=== PATIENT | female | born 1950 | race Asian ===

== ENCOUNTER 2016-11-29 01:16 | Day surgery (SDC) | payer MEDICARE, OTHER ==
[~2016-11-29] VITALS: Ht 165.1 cm; Wt 54.4 kg
[~2016-11-29 01:16] MED LIST: ASCO500C6 PO; ATRV10T PO; CART1TAB5 PO; CHOL200047 PO; CYAN250010 PO; FA/V1CAP3 PO; FELO10TA3 PO; HYDR12.55 PO; LISI40TA PO; MAGN250T29 PO; OMEG1CAP25 PO; SACC250C9 PO; UBID100C16 PO; [UNRECOGNIZED DRUG - CODE] PO
[2016-11-29] MEDS ORDERED: 0.9% Sodium Chloride 1,000 ML IV SCH (06:00)
[2016-11-29] MEDS ORDERED: Sodium Chloride LOK Flush 10 mL Syringe IV PRN (06:00)
[2016-11-29] MEDS ORDERED: fentaNYL-PF 50 mCg/mL 2 mL Inj IVPUSH PRN (06:00)
[2016-11-29 11:59] VITALS: BP 148/95; RESP 16; O2SAT 95
[2016-11-29 12:55] VITALS: BP 135/81; PULSE 63; RESP 12; O2SAT 99
[2016-11-29 13:10] VITALS: BP 126/75; PULSE 57; RESP 12; O2SAT 98
--- NOTE | 2016-11-29 16:31 | ENDO ---
[address] [address] ENDOSCOPY PROCEDURE PATIENT: PANKAJ MCKENZIE : 1950 MR#: [id number] ADMIT: 11/29/2016 JOB ID: [id number] DATE OF SERVICE: 11/29/2016 OPERATION: Esophagogastroduodenoscopy with biopsy. PREOPERATIVE DIAGNOSIS: Gastroesophageal reflux disease. POSTOPERATIVE DIAGNOSIS: Normal upper endoscopy, status post biopsy. ANESTHESIA: Fentanyl 100 mcg, Versed 6 mg IV administered. COMPLICATIONS: None. BLOOD LOSS: Minimal. DESCRIPTION OF PROCEDURE: After risks and benefits were explained to the patient, informed consent was obtained. After anesthesia administered, an upper endoscope was inserted in mouth intubating to the esophagus, stomach, second portion of duodenum. Mucosa carefully examined. After procedure was done, the scope withdrawn, procedure terminated. FINDINGS: Upon inspection of the esophagus, the esophagus was normal without masses, ulcers, or lesions. Z-line located 40 cm from the incisors. Upon entering the stomach, the stomach was also normal without masses, ulcers, or lesions. Retroflexion was normal. Duodenal bulb, first and second portion normal. Biopsies taken at the antrum body and distal esophagus. IMPRESSION: Normal upper endoscopy, status post biopsy. RECOMMENDATIONS: Await pathology results. Follow up in GI clinic as needed.
--- NOTE | 2016-11-30 11:49 | PATH ---
SURGICAL PATHOLOGY Attending Physician:Ruddy Mota MD CASE STATUS: Signed Out PATIENT NAME: PANKAJ MCKENZIE PID: [id number] : 1950 DATE COLLECTED:11/29/2016 20:15 SPECIMEN: 1: Stomach, Antrum, Biopsy 2: Gastric, Biopsy 3: Esophagus, Biopsy CLINICAL HISTORY: GERD 1). ANTRUM BIOPSY 2). GASTRIC BODY BIOPSY 3). DISTAL ESOPHAGUS BIOPSY FINAL DIAGNOSIS: 1.ANTRUM BIOPSY: REACTIVE GASTROPATHY, ANTRAL MUCOSA. Negative for Helicobacter organisms. Negative for intestinal metaplasia. Negative for dysplasia and malignancy. 2.GASTRIC BODY BIOPSY: GASTRIC BODY MUCOSA WITH NO DIAGNOSTIC ALTERATIONS. Negative for Helicobacter organisms. Negative for intestinal metaplasia. Negative for dysplasia and malignancy. 3.DISTAL ESOPHAGUS BIOPSY: SQUAMOCOLUMNAR MUCOSA WITH INTESTINAL METAPLASIA CONSISTENT WITH CAICEDO' S ESOPHAGUS. Negative for dysplasia and malignancy. ICD10 code K29.70 K22.70 GROSS DESCRIPTION: The specimen is received in three formalin filled containers labeled with the patient's name. 1). The specimen is sublabeled "antrum" and consists of 2 portions of tissue which aggregate to 0.3 x 0.3 x 0.3 CM. The specimen is entirely submitted in cassette 1A. 2). The specimen is sublabeled "gastric body" and consists of 2 portions of tissue which aggregate to 0.4 x 0.3 x 0.2 CM. The specimen is entirely submitted in cassette 2A. 3). The specimen is sublabeled "distal esophagus" and consists of a 0.3 x 0.3 x 0.2 CM portion of tissue which is entirely submitted in cassette 3A. 11/29/2016 [facility] MICRO DESCRIPTION: See diagnosis. ICD-9 CODES: CPT CODES: 1: 85188 2: 00066 3: 23440 Electronically Signed Out Lela Lane MD [facility] Pathology [facility], [place] [address] Technical component performed at [facility], [facility] [address], [place], [address]
== END 2016-11-29 23:59 | disposition home or self-care (01) ==
LOC: END 01:16
PROVIDERS: ATTEND Internal Medicine Gastroenterology
DX: K22.70 Barrett's esophagus without dysplasia (principal); K21.9 Gastro-esophageal reflux disease without esophagitis; Z86.010 Personal history of colon polyps
CPT/HCPCS: 43239; 88305; G0500; J7030